=== PATIENT | female | born 1995 | race Caucasian/White ===

== ENCOUNTER → 2020-07-23 | Outpatient (CLI) | payer BC ==
[~2020-07-23] MED LIST: DITROPAN 5 MG TA5 MG PO; MACROBID 100 M100 MG PO; NAPROSYN500 MG PO; NORCO 5-325 TA1 EACH PO; ZOFRAN4 MG PO
== END ==
LOC: HEART 5 11:00
DX: R00.2 Palpitations (principal)

== ENCOUNTER → 2020-10-16 | Outpatient (CLI) | payer BC | LOC: HEART 5 10-14 09:30 | DX: R07.9 Chest pain, unspecified (principal); R06.02 Shortness of breath | CPT/HCPCS: 93306 ==

== ENCOUNTER → 2021-04-20 | Outpatient (CLI) | payer BC | LOC: EXRD 15:49 | DX: R06.02 Shortness of breath (principal) | CPT/HCPCS: 94010 ==